=== PATIENT | male | born 1940 | race Caucasian/White ===

== ENCOUNTER 2021-05-13 12:34 | Emergency (ER) | payer MEDICARE, BC ==
[2021-05-13 12:46] VITALS: TEMP 98
--- NOTE | 2021-05-13 13:45 | XR ---
EXAMINATION TYPE: XR finger RT, 3 views coned down right fifth digit DATE OF EXAM: 05/13/2021 COMPARISON: NONE HISTORY: 80-year-old male Little finger injury after trip and fall. FINDINGS: There is an oblique intra-articular fracture through the radial half of the fifth proximal phalangeal head and neck. There is impaction of approximately 6 mm. The PIP joint has traveled with the impacte d fragment, refer to the lateral projection. Advanced degenerative spurring and joint space narrowing at the level of the DIP joint. IMPRESSION: Fracture dislocation of the fifth proximal phalangeal head and neck. The radial half of the articular surface is fractured and impacted by 6 mm. The middle phalanx continues to articulate with this impa cted fragment. Refer to the lateral projection.
[2021-05-13] MEDS ORDERED: LIDOCAINE 1% INJ 10MG/ML (20 ML MDV) SQ ONE (14:09)
[2021-05-13 14:12] VITALS: BP 120/91; PULSE 89; RESP 18
--- NOTE | 2021-05-13 14:41 | ED ---
General Adult HPI - General Chief complaint: Fall Stated complaint: Fall/Rt Hand Injury Time Seen by Provider: 05/13/21 13:05 Source: patient Mode of arrival: ambulatory Limitations: no limitations - History of Present Illness Initial comments: 80-year-old male patient presents to the emergency department today for evaluation of right little finger injury. Patient states he tripped over a canvas in his home and fell landing on his outstretched hand. States he injured the finger. States it is stuck in a bent position is unable to move it. He denies hitting his head or losing consciousness. Denies any neck or back pain. Denies any other injuries or concerns. He does take Eliquis. Patient denies any headache, chest pain, shortness of breath, dizziness, weakness, abdominal pain, nausea, vomiting, or difficulties with bowel movements or urination. - Related Data Allergies Allergy/AdvReac Type Severity Reaction Status Date / Time No Known Allergies Allergy Verified 05/13/21 12:46 Review of Systems ROS Statement: Those systems with pertinent positive or pertinent negative responses have been documented in the HPI. ROS Other: All systems not noted in ROS Statement are negative. Past Medical History Past Medical History: Atrial Fibrillation, GERD/Reflux, Hyperlipidemia, Hypertension, Memory Impairment, Thyroid Disorder Additional Past Medical History / Comment(s): Prostate History of Any Multi-Drug Resistant Organisms: None Reported Past Surgical History: Coronary Bypass/CABG, Heart Catheterization With Stent, Orthopedic Surgery Additional Past Surgical History / Comment(s): bilat knee replacement, spinal fusion Past Psychological History: No Psychological Hx Reported Smoking Status: Former smoker Past Alcohol Use History: Daily, Occasional Past Drug Use History: None Reported General Exam Limitations: no limitations General appearance: alert, in no apparent distress, other (This is a well- developed, well-nourished elderly male patient in no acute distress. Vital signs upon presentation are temperature 98.0F, pulse 124, respirations 19, blood pressure 160/96, pulse ox 96% on room air.) Head exam: Present: atraumatic, normocephalic, normal inspection ENT exam: Present: normal exam, normal oropharynx, mucous membranes moist Neck exam: Present: normal inspection, full ROM, other (Nontender, no step-off, no deformity to firm midline palpation of the posterior cervical spine. Full range of motion without pain or limitation.). Absent: tenderness, meningismus, lymphadenopathy Respiratory exam: Present: normal lung sounds bilaterally. Absent: respiratory distress, wheezes, rales, rhonchi, stridor Cardiovascular Exam: Present: regular rate, normal rhythm, normal heart sounds. Absent: systolic murmur, diastolic murmur, rubs, gallop, clicks GI/Abdominal exam: Present: soft, normal bowel sounds. Absent: distended, tenderness, guarding, rebound, rigid Extremities exam: Present: full ROM (Very little finger fixed in the flexed position unable to extend.), tenderness (Right little finger), normal capillary refill, other (There is soft tissue swelling and ecchymosis to the right little finger. Cap refill less than 3 seconds. Radial pulses 2+.). Absent: normal inspection, pedal edema, joint swelling, calf tenderness Neurological exam: Present: alert, oriented X3, CN II-XII intact Psychiatric exam: Present: normal affect, normal mood Skin exam: Present: warm, dry, intact, normal color. Absent: rash Course Vital Signs 05/13/21 05/13/21 12:39 14:11 Temperature 98.0 F Pulse Rate 124 H 89 Respiratory 19 18 Rate Blood Pressure 160/96 120/91 O2 Sat by Pulse 96 98 Oximetry Procedures - Orthopedic Fracture Reduction Fracture #1 Consent Obtained: verbal consent Side: right Fracture Reduction Location: finger (little) Analgesia: digital block Technique: direct manipulation, traction/counter-traction Post Reduction X-rays Demonstrate: acceptable reduction Post-Reduction Neuro Exam: intact Post-Reduction Vascular Exam: intact Splint Applied: Yes Patient Tolerated Procedure: well Medical Decision Making - Medical Decision Making 80-year-old male patient presented to the emergency department today for evaluation of injury to the right little finger. Physical examination did reveal soft tissue swelling and ecchymosis. Finger was fixed in the flexed position. X-ray was obtained and did reveal a fracture of the proximal near the PIP joint, this was also impacted and dislocated. Digital block was performed and reduction of the fracture dislocation was performed. Repeat xray showed interval reduction. Neurovascular status intact. Finger splint applied. He is instructed to leave the splint in place until follow-up with orthopedics. He is instructed to call in the morning for an appointment. He is instructed take, for pain control. Instructed to follow-up with primary care physician as needed. Return parameters were discussed in detail. He verbalizes understanding and agrees with this plan. Case discussed with my attending Dr. Pate. - Radiology Data Radiology results: report reviewed, image reviewed Right little finger x-ray was obtained. Report was reviewed in its entirety. Impression by Dr. Bloom shows fracture dislocation of the fifth proximal phalangeal head and neck. The radial half of the articular surfaces fractured impacted by 6 mm. The middle phalanx continues to articulate with this impacted fragment. Refer to lateral projection. 2 views of the right fifth finger is obtained. Report was reviewed in its entirety. Impression by Dr. Bloom shows interval closed reduction of the PIP joint. The oblique intra-articular fracture of the radial aspect of the proximal phalangeal head shows approximately 4 mm of residual separation unable oblique view and articular surface step-off at 1.5 mm. Disposition Clinical Impression: Closed fracture of phalanx of right little finger, Dislocation of right little finger Disposition: HOME SELF-CARE Condition: Good Instructions (If sedation given, give patient instructions): Finger Fracture (ED) Additional Instructions: The finger splint in place until follow-up with orthopedic shoe fitter. Call the office today or tomorrow morning for an appointment. Take Tylenol for pain control. Follow-up with the primary care physician for recheck in 1-2 days. Return for any new, worsening, or concerning symptoms. Is patient prescribed a controlled substance at d/c from ED?: No Referrals: Britt Plaza MD [Primary Care Provider] - 1-2 days Noah Wright DO [Doctor of Osteopathic Medicine] - 1-2 days Time of Disposition: 15:05
--- NOTE | 2021-05-13 15:16 | XR ---
EXAMINATION TYPE: XR finger RT, 3 views coned-down right fifth finger DATE OF EXAM: 05/13/2021 COMPARISON: NONE HISTORY: 80-year-old male post reduction exam FINDINGS: Interval gross reduction at the fifth PIP joint. The oblique, intra-articular fracture fragment along the radial aspect of the fifth proximal phalangeal head shows approximately 4 mm of separation on th e oblique view and articular surface step-off of 1.5 mm. Osteopenia. IMPRESSION: Interval gross reduction at the PIP joint. The oblique intra-articular fracture of the radial aspect of the proximal phalangeal head shows approximately 4 mm of residual separation on the oblique view a nd articular surface step-off of 1.5 mm.
== END 2021-05-13 15:32 | disposition home or self-care (01) ==
LOC: EC 12:34
DX: S62.616A Displaced fracture of proximal phalanx of right little finger, initial encounter for closed fracture (principal); S63.286A Dislocation of proximal interphalangeal joint of right little finger, initial encounter; I48.91 Unspecified atrial fibrillation; K21.9 Gastro-esophageal reflux disease without esophagitis; E78.5 Hyperlipidemia, unspecified; I10 Essential (primary) hypertension; E07.9 Disorder of thyroid, unspecified; Z95.5 Presence of coronary angioplasty implant and graft; Z87.891 Personal history of nicotine dependence; W01.198A Fall on same level from slipping, tripping and stumbling with subsequent striking against other object, initial encounter
CPT/HCPCS: 99283; 26742; 73140; J2001